=== PATIENT | male | born 1990 | race African-American/Black ===

== ENCOUNTER 2016-11-07 20:12 | Emergency (ER) | payer MEDICAID ==
[~2016-11-07] VITALS: Ht 180.3 cm; Wt 85.7 kg
[~2016-11-07 20:12] MED LIST: ACETAMINOPHEN-1 EAC1 ORAL; ALBUTEROL SULF8.5 GM INH; IBUPROFEN600 MG ORAL; NKM; NORCO 5-325 TA1 EACH ORAL; ROBITUSSIN DM5 ML ORAL; VENTOLIN HFA18 GM INH; ZITHROMAX250 MG ORAL
--- NOTE | 2016-11-07 21:05 | Emergency Room Report ---
History of Present Illness General Chief Complaint: Skin Rash/Abscess Source: Patient Present Illness HPI 26-year-old male, history of abscess times, presenting with right buttocks abscess for 3 days. Patient states lump has been getting worse. Denies any purulent drainage. Patient states that he always gets abscess using Botox area , has required incision and drainage in the operating room twice in the past. Allergies: Coded Allergies: No Known Allergies (Unverified , 04/11/15) Patient History Past Medical History: see triage record Past Surgical History: none Pertinent Family History: none Reviewed Nursing Documentation: PMH: Agreed, PSxH: Agreed Nursing Documentation-PM Past Medical History: No Stated History Hx Asthma: Yes Review of Systems All Other Systems: negative except mentioned in HPI Physical Exam Vital Signs Date Time Temp Pulse Resp B/P (MAP) Pulse Ox O2 Delivery O2 Flow Rate FiO2 11/07/16 20:29 98.2 96 18 126/86 97 Room Air Sp02 EP Interpretation: reviewed, normal General Appearance: normal inspection, well appearing, alert, GCS 15, non-toxic , moderate distress Head: normocephalic, atraumatic Eyes: bilateral eye normal inspection, bilateral eye PERRL, bilateral eye EOMI ENT: normal ENT inspection, normal pharynx, normal voice, moist mucus membranes Neck: normal inspection, full range of motion, supple Respiratory: normal inspection, lungs clear, normal breath sounds, no respiratory distress, no retraction, no wheezing, speaking full sentences, chest symmetrical Cardiovascular #1: normal inspection, regular rate, rhythm, no edema, normal capillary refill Cardiovascular #2: 2+ radial (R), 2+ radial (L) Gastrointestinal: normal inspection, non tender, soft, non-distended, no guarding Rectal: other - 1.5 x 1.5 cm abscess located right buttocks area, about 4 cm away from anus, at 11:00 position Musculoskeletal: normal inspection, back normal, normal range of motion, non- tender Neurologic: normal inspection, alert, oriented x3, responsive, motor strength/ tone normal, sensory intact, normal gait, speech normal Psychiatric: normal inspection, judgement/insight normal, memory normal Skin: normal inspection, normal color, warm/dry, well hydrated, normal turgor Procedures Incision and Drainage Incision and Drainage : Consent: Verbal Blade Size: 11 I & D Procedure: betadine prep, sterile drapes applied, sterile dressing applied, gauze wick placed Wound Location: other - R ofe anal Wound Length (cm): 2 Wound Explored: purulent drainage Irrigated w/ Saline (ccs): 5 Anesthesia: 1% Lidocaine Splint Applied?: No Sling Applied?: No Patient Tolerated: Well Complications: None Medical Decision Making Diagnostic Impression: Primary Impression: Perianal abscess ER Course 26 yo M. with right buttocks abscess Plan: Abscess his perianal, does not appear to be close to rectum, we'll perform incision and drainage in ER and discharged with antibiotics ER course: I&D performed, +purulent drainage Disposition: Patient is to be discharged to home. Prescriptions given are Keflex and doxycycline Patient is instructed to follow up with their primary care doctor or ED within 2 days for wound recheck. Patient also instructed to followup with a rn camp Strict return precautions discussed with patient such as fever, chills, worsening/severe pain, spread of rash, which may indicate severe illness. Patient verbalizes understanding and agrees with plan. Please note that this Emergency Department Report was dictated using [employer] program [employer] technology software, occasionally this can lead to erroneous entry secondary to interpretation by the dictation equipment Last Vital Signs Date Time Temp Pulse Resp B/P (MAP) Pulse Ox O2 Delivery O2 Flow Rate FiO2 11/07/16 20:29 98.2 96 18 126/86 97 Room Air Disposition: HOME, SELF-CARE Condition: Improved Scripts Doxycycline Monohydrate* (DOXYCYCLINE MONOHYDRATE*) 100 Mg Capsule 100 MG ORAL Q12H, #14 CAP 0 Refills Prov: Lia Toney M.D. 11/07/16 Cephalexin* (KEFLEX*) 500 Mg Capsule 500 MG ORAL EVERY 6 HOURS for 7 Days, #28 CAP 0 Refills Prov: Lia Toney M.D. 11/07/16 Additional Instructions: Please follow up with your primary care doctor within 2 days. for wound recheck Please take your prescription medication as directed. Please come back to the emergency room if you are having worsening pain, fever chills or spread of rash Lia Toney M.D. Nov 07, 2016 21:05
[2016-11-07] MEDS ORDERED: KEFLEX500 MG ORAL (21:42)
[2016-11-07] MEDS ORDERED: DOXYCYCLINE MO100 MG ORAL (21:42)
[2016-11-07 21:54] VITALS: BP 120/88
== END 2016-11-07 21:54 | disposition home or self-care (01) ==
LOC: EMR 21:00
DX: K61.0 Anal abscess (principal); J45.909 Unspecified asthma, uncomplicated
CPT/HCPCS: 10060; 99284

== ENCOUNTER 2017-05-05 10:40 | Emergency (ER) | payer MEDICAID ==
[~2017-05-05] VITALS: Ht 177.8 cm; Wt 89.4 kg
[~2017-05-05 10:40] MED LIST changes: +DOXYCYCLINE MO100 MG ORAL; +KEFLEX500 MG ORAL
[2017-05-05 10:46] VITALS: BP 113/80
--- NOTE | 2017-05-05 11:08 | Emergency Room Report ---
History of Present Illness General Chief Complaint: Upper Respiratory Illness Source: Patient Present Illness HPI Patient with several days of URI symptoms. Congested. Cough with green phlegm. Some sore throat. Pain in chest with cough. Feverish, not documented. No NVD, dysuria, joint pain, headache. Girlfriend hears him wheezing at night. Denies h/o asthma. Pain rated 9/10 aching, more with cough. Stopped smoking 5 months ago. Smokes cannabis. No co-morbidities. Concerned about needing to miss work. Allergies: Coded Allergies: No Known Allergies (Unverified , 04/11/15) Patient History Past Medical History: see triage record Social History: Reports: smoking - stopped 5 months ago, drug use Social History Narrative transportation security officer for [employer] Reviewed Nursing Documentation: PMH: Agreed, PSxH: Agreed Nursing Documentation-PM Past Medical History: No History, Except For Hx Asthma: Yes Review of Systems All Other Systems: negative except mentioned in HPI Physical Exam Vital Signs Date Time Temp Pulse Resp B/P (MAP) Pulse Ox O2 Delivery O2 Flow Rate FiO2 05/05/17 10:46 98.1 80 16 113/80 94 Room Air 98.1 Sp02 EP Interpretation: reviewed, abnormal - slightly low as interpreted by me General Appearance: well appearing, no apparent distress Head: normocephalic, atraumatic Eyes: bilateral eye normal inspection, bilateral eye PERRL ENT: hearing grossly normal, normal voice, TMs + canals normal, pharyngeal erythema Neck: full range of motion, supple Respiratory: lungs clear, normal breath sounds, no respiratory distress, speaking full sentences Cardiovascular #1: regular rate, rhythm Cardiovascular #2: 2+ radial (L) Gastrointestinal: normal inspection Musculoskeletal: digits/nails normal, gait/station normal, normal range of motion Neurologic: alert, grossly normal Psychiatric: mood/affect normal Skin: no rash Medical Decision Making Diagnostic Impression: Primary Impression: Upper respiratory infection Qualified Codes: J06.9 - Acute upper respiratory infection, unspecified ER Course Patient with congestion, cough, sore throat. DDx: bronchitis, viral syndrome, sinusitis, pharyngitis, bronchospasm amongst others. Not toxic. No reps distress. No risks for PE. Symptomatic treatment. Wheezing by girlfriend will be treated. Clear now. Patient stable for outpatient observation and treatment. Last Vital Signs Date Time Temp Pulse Resp B/P (MAP) Pulse Ox O2 Delivery O2 Flow Rate FiO2 05/05/17 11:21 98.0 91 17 125/98 98 Room Air Status: improved Disposition: HOME, SELF-CARE Condition: Stable Scripts Albuterol Sulfate* (ALBUTEROL SULFATE MDI*) 8.5 Gm Hfa.aer.ad 2 PUFF INH Q6H, #1 EA 0 Refills Prov: Puneet Leal M.D. 05/05/17 Guaifenesin/Dextromethorphan (ROBITUSSIN COUGH-CHEST DM LIQ) 237 Ml Liquid 55 ML PO Q6HR, #90 ML Prov: Puneet Leal M.D. 05/05/17 Ibuprofen* (MOTRIN*) 600 Mg Tablet 600 MG ORAL Q6H Y for For Pain, #20 TAB Prov: Puneet Leal M.D. 05/05/17 Referrals: NOT CHOSEN SANAZ/,REFERRING (PCP) Puneet Leal M.D. May 05, 2017 11:08
[2017-05-05] MEDS ORDERED: ALBUTEROL SULF8.5 GM INH (11:12)
[2017-05-05] MEDS ORDERED: ROBITUSSIN COU237 M1 PO (11:12)
[2017-05-05] MEDS ORDERED: IBUPROFEN600 MG ORAL (11:12)
[2017-05-05 11:21] VITALS: BP 125/98
== END 2017-05-05 11:22 | disposition home or self-care (01) ==
LOC: EMR 11:06
DX: J06.9 Acute upper respiratory infection, unspecified (principal); J45.909 Unspecified asthma, uncomplicated
CPT/HCPCS: 99283